=== PATIENT | female | born 1995 | race Caucasian/White ===

== ENCOUNTER 2019-03-26 21:17 | Emergency (ER) | payer OTHER ==
[2019-03-26] MEDS ORDERED: NS 0.9% 1000 ML** 1,000 ML IV.FLUID IV ONE (22:26)
[2019-03-26] MEDS ORDERED: Azithromycin 500 mg/250 ml NS 500 MG/250 ML BAG IVPB ONE (22:48)
[2019-03-26] MEDS ORDERED: cefTRIAXone(*) 1 GM in NS 0.9% 50 ML* 50 ML IVPB ONE (22:48)
--- NOTE | 2019-03-26 22:54 | ED ---
Respiratory - HPI Summary HPI Summary: The patient is a 23 y/o F presenting to [facility] with a chief complaint of worsening SOB and wheezing starting two days ago. She reports her symptoms worsened today with a mid-sternal and left anterior pleuritic CP secondary to SOB and productive cough starting today. She additionally c/o a warm sensation without a measured fever and decreased appetite. Currently, her symptoms are rated 5/10 in severity. She has hx of asthma with Albuterol treatments mostly in the ED but without nebulizer at home. She denies chance for with LNMP ending yesterday. PMHx: asthma. Heavy every day smoker (1 ppd), occasional EtOH, marijuana use. - History of Current Complaint Chief Complaint: EDUpperRespComplaint Stated Complaint: COUGH, NO ENERGY , COLD Time Seen by Provider: 03/26/19 22:26 Hx Obtained From: Patient Onset/Duration: Sudden Onset, Lasting Days - two, Still Present, Worse Since - today Timing: Constant Initial Severity: Mild Current Severity: Moderate Pain Intensity: 5 Character: Wheezing, Cough (Productive) Sputum Amount: Moderate Aggravating Factor(s): Nothing Alleviating Factor(s): Nothing Associated Signs and Symptoms: Fever - warm sensation without measurement, SOB, Chest Pain with Cough, Pleuritic Chest Pain - Allergy/Home Medications Allergies/Adverse Reactions: Allergies Allergy/AdvReac Type Severity Reaction Status Date / Time No Known Allergies Allergy Verified 03/26/19 23:30 Home Medications: Home Medications Albuterol HFA INHALER* [Ventolin HFA Inhaler*] 2 puff INH Q6H PRN 03/26/19 [ History Confirmed 03/26/19] guaiFENesin [Mucinex] 600 mg PO DAILY 03/26/19 [History Confirmed 03/26/19] PMH/Surg Hx/FS Hx/Imm Hx Endocrine/Hematology History: Denies: Hx Diabetes Respiratory History: Reports: Hx Asthma - since child Sensory History: Reports: Hx Contacts or Glasses Denies: Hx Deafness Opthamlomology History: Reports: Hx Contacts or Glasses Denies: Hx Legally Blind EENT History: Denies: Hx Deafness - Surgical History Surgical History: None Surgery Procedure, Year, and Place: none Infectious Disease History: No Infectious Disease History: Denies: Traveled Outside the [place] in Last 30 Days - Family History Known Family History: Positive: Respiratory Disease - asthma - Social History Alcohol Use: Occasionally Hx Substance Use: Yes Substance Use Type: Reports: Marijuana Substance Use Comment - Amount & Last Used: every day Hx Tobacco Use: Yes Smoking Status (MU): Heavy Every Day Tobacco Smoker Review of Systems Positive: Fever - warm sensation without measured temperature Positive: Chest Pain - pleuritic mid-sternal and left anterior Positive: Shortness Of Breath, Cough - productive, Other - wheezing All Other Systems Reviewed And Are Negative: Yes Physical Exam - Summary Physical Exam Summary: Appearance: Ill-appearing, Well-nourished, young woman lying in bed comfortably Skin: Scar from prior IV drug abuse, No sign of any fresh track cantor, Warm, dry , no obvious rash Eyes: sclera anicteric, no conjunctival pallor ENT: mucous membranes moist, pharynx appears normal Neck: Supple, nontender Respiratory: Known to have tachypnea. Right-sided crackles all the way up with egophony, No wheezing, Able to speak in full sentences. Cardiovascular: Known to be tachycardic. Normal S1, S2. No murmurs. Normal distal pulses in tibial and radial bilaterally. Abdomen: Soft, nontender, normal active bowel sounds present Musculoskeletal: Normal, Strength/ROM Intact, Motor function in all 4 extremities is normal and symmetric. There is no rigidity or tremor noted. Neurological: A&Ox3, awake and alert, mentation is normal, speech is fluent and appropriate Psychiatric: affect is normal, does not appear anxious or depressed Triage Information Reviewed: Yes Vital Signs On Initial Exam: Initial Vitals Temp Pulse Resp BP Pulse Ox 100.9 F 117 15 121/83 94 03/26/19 21:21 03/26/19 21:21 03/26/19 21:21 03/26/19 21:21 03/26/19 21:21 Vital Signs Reviewed: Yes Diagnostics - Vital Signs Vital Signs Temp Pulse Resp BP Pulse Ox 03/26/19 21:21 100.9 F 117 15 121/83 94 - Laboratory Lab Statement: Any lab studies that have been ordered have been reviewed, and results considered in the medical decision making process. - Radiology CXR Radiology Interpretation Completed By: ED Physician Summary of Radiographic Findings: Bilateral patchy interstitial infiltrates are present. ED physician has interpreted this report. Pending official read. Re-Evaluation - Re-Evaluation First Eval Re-Evaluation Time: 23:14 Comment: This young woman has signs and symptoms of pneumonia and is tachy and ill appearing. 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 I explained that I think she needs IV access for antibiotics and to get a CBC and other blood work , and without that information I am quite hamstrung as to the best way to treat her. She continues to refuse. I will proceed with CXR and reassess. Second Eval Re-Evaluation Time: 23:30 Comment: Patient would like to leave AMA despite the risks with postive chest x- ray results. Disposition - Course Course Of Treatment: Patient is a 23 y/o F with cc of worsening respiratory symptoms starting with SOB and wheezing with development into mid-sternal and left anterior CP and productive cough. Additionally c/o warm sensation without measured temp. Hx of asthma since childhood without nebulizer at home. Current smoker. Upon physical exam, the patient appears to be an ill-appearing young women who is known to be tachycardic and tachypneic with right-sided crackles all the way up with egophony but no wheezing and is able to speak in complete sentences, and there is a scar from prior IV drug abuse without signs of any fresh track cantor. She is refusing IV at this time, which will not allow us to obtain blood work or administer medications other than PO Cefdinir and Azithromycin. Chest x-ray, per my interpretation, reveals presence of bilateral patchy interstitial infiltrates. We will reasses IV access with these findings. After reporting results to the patient, she is still refusing IV access and would like to leave AMA. I explained all of the risks of leaving against medical advice, and she would still like to leave. - Diagnoses Provider Diagnoses: PNA (pneumonia) Discharge - Sign-Out/Discharge Documenting (check all that apply): Patient Departure - Patient is leaving AMA. Patient Received Moderate/Deep Sedation with Procedure: No - Discharge Plan Condition: Guarded Disposition: AGAINST MEDICAL ADVICE Prescriptions: Azithromycin TAB* [Zithromax TAB (Z-JAMEY) 250 mg #6 tabs] 250 mg PO DAILY #4 tab Cefdinir cap* [Cefdinir 300 MG cap (NF)] 300 mg PO BID #20 cap predniSONE TAB* [Deltasone 20 MG TAB*] 40 mg PO DAILY 10 Days #20 tab Patient Education Materials: Bacterial Pneumonia (ED) Referrals: [facility] [Outside] - 3 Days Additional Instructions: I am concerned about how sick you are, but respect your right to choose the therapy that works for you. I would not be surprised that you worsen over the next 2-3 days, and please do not hesitate to return if you are feeling worse. It would be helpful if you could get in to be rechecked in 2-3 days in any event , so contact the [facility] tomorrow to make an appt. - Billing Disposition and Condition Condition: GUARDED Disposition: Against Medical Advice - Attestation Statements Document Initiated by Radha: Yes Documenting Scribe: Emma Wilson Provider For Whom Radha is Documenting (Include Credential): Dr. Lui Carreon MD Scribe Attestation: I, robbie Barrientosibed for Dr. Lui Carreon MD on 03/27/19 at 0652. Scribe Documentation Reviewed: Yes Provider Attestation: The documentation as recorded by the Emma kruger accurately reflects the service I personally performed and the decisions made by me, Dr. Lui Carreon MD Status of Scribjuno Document: Viewed
[2019-03-26 23:03] VITALS: BP 115/86
[2019-03-26] MEDS ORDERED: Azithromycin TAB* 250 MG PO ONE (23:23)
[2019-03-26] MEDS ORDERED: predniSONE TAB* 20 MG PO ONE (23:24)
[2019-03-26] MEDS ORDERED: Cefdinir cap* 300 MG CAP PO SCH (23:45)
== END 2019-03-26 23:55 | disposition left against medical advice (07) ==
LOC: ED 21:17
DX: J18.9 Pneumonia, unspecified organism (principal); F17.210 Nicotine dependence, cigarettes, uncomplicated
CPT/HCPCS: 71046; 87040; 99282; A9270-GY; J7512